=== PATIENT | male | born 1960 | race Caucasian/White ===

== ENCOUNTER 2018-12-24 10:39 | Inpatient (IN) | payer OTHER ==
[~2018-12-24] VITALS: Ht 172.7 cm; Wt 93.0 kg
--- NOTE | 2018-12-24 10:43 | NUR ---
PT AMBULATES TO BED 10 Addendum: 12/24/18 at 1102 by JEREMISA Amendment jakob in EDM - 12/24/18 at 1317 by JEREMIAS XRAY AT BEDSIDE
[2018-12-24 10:47] VITALS: BP 148/99
--- NOTE | 2018-12-24 10:49 | NUR ---
Patient being evaluated by physician at bedside.
--- NOTE | 2018-12-24 10:50 | NUR ---
58 Y M BIB SELF C/O SOB AND PALPITATIONS. PT IS DIAPHRETIC, FLUSHED, SINUS TACHY AT 189, RR 30 WITH LABORED BREATHING, SAT AT 100, BP IS 148/99, NO FEVER, PATEIENT STATES HE IS DETOXING FROM ETOH. LAST DRINK FRIDAY NIGHT. PATIENT STATES HE IS FEELING DIZZY. BED IS DOWN, LOCKED, BED RAIL X 1, ERMD NOTIFIED OF PATIENT STATUS PMH-CHF, HTN, STAGE 3 KIDNEY DISEASE
--- NOTE | 2018-12-24 11:02 | NUR ---
rad at bedside
--- NOTE | 2018-12-24 11:02 | NUR ---
lab at bedside
--- NOTE | 2018-12-24 11:02 | NUR ---
XRAY AT BEDSIDE
--- NOTE | 2018-12-24 11:07 | NUR ---
DR. MCGUIRE IS AT PT BEDSIDE AGAIN
[2018-12-24 11:09] LABS: BASOPHILS # (AUTO) 0.1 K/uL (0.00-0.22); BASOPHILS % (AUTO) 0.6 % (0.0-2.0); EOSINOPHILS # (AUTO) 0.2 K/uL (0-0.4); EOSINOPHILS % (AUTO) 2.5 % (0.0-4.0); HEMATOCRIT 41.2 % (36-52); LYMPHOCYTES # (AUTO) 1.5 K/uL (2.0-11.5); MEAN CORPUSCULAR HEMOGLOBIN 33 pg (27-31); MEAN CORPUSCULAR HGB CONC 34 g/dL (33-37); MEAN CORPUSCULAR VOLUME 97.1 fL (80-94); MONOCYTES % (AUTO) 11.3 % (1.7-9.3); NEUTROPHILS % (AUTO) 68.6 % (42.2-75.2); PLATELET COUNT (AUTO) 299 K/uL (140-450); RED BLOOD CELL COUNT(AUTO) 4.24 MIL/uL (4.20-6.10); RED CELL DISTRIBUTION WIDTH 12.6 % (11.6-13.7); WHITE BLOOD COUNT (AUTO) 8.7 K/uL (4.8-10.8)
[2018-12-24] MEDS ORDERED: ADENOSINE 6 MG/2 ML VIAL IVP ONE (11:10)
[2018-12-24 11:19] LABS: ANION GAP 14.2 (8-16); CARBON DIOXIDE 25.4 mmol/L (21-32); CREATININE 1.5 mg/dL (0.7-1.3); POTASSIUM 4.6 mmol/L (3.5-5.1)
--- NOTE | 2018-12-24 11:22 | NUR ---
PT WAS GIVEN ADENOSINE WITHOUT DR. MCGEE AT BEDSIDE
--- NOTE | 2018-12-24 11:23 | NUR ---
PT STATES HE CANNOT GIVE URINE AT THIS TIME, PT ALSO STATES HIS LAST DRINK WAS ON FRIDAY NIGHT
[2018-12-24 11:24] LABS: TOTAL BILIRUBIN 0.4 mg/dL (0.0-1.0)
--- NOTE | 2018-12-24 12:20 | NUR ---
URINE COLLECTED AT BEDSIDE
--- NOTE | 2018-12-24 12:32 | NUR ---
PT STATES DTR WILL GET PT MEDICATION LIST FOR PT
[2018-12-24] MEDS ORDERED: ONDANSETRON 4 MG/2 ML VIAL IVP PRN (12:40)
[2018-12-24] MEDS ORDERED: HYDROcodone/APAP 5/325 MG 1 TAB TAB PO PRN (12:40)
[2018-12-24] MEDS ORDERED: NITROGLYCERIN 0.4 MG TAB SL PRN (12:40)
--- NOTE | 2018-12-24 12:58 | NUR ---
PT IS EATING AT THIS TIME, WAITING FOR PT TO FINISH EATING AND WILL BRING PT TO FLOOR
[2018-12-24 13:05] LABS: BARBITURATE, URINE NEG. ng/ml (NEG <=200); BENZODIAZEPINE, URINE NEG. ng/mL (NEG <=200); CANNABINOID, URINE POS. ng/mL (NEG <=50); COCAINE, URINE NEG. ng/mL (NEG <=300); OPIATE, URINE NEG. ng/mL (NEG <=2000); PHENCYCLIDINE SCREEN,URINE NEG. ng/mL (NEG <=25)
[2018-12-24] MEDS ORDERED: ASPI-1718 PO (13:06)
[2018-12-24] MEDS ORDERED: SIMV40TA1 PO (13:06)
[2018-12-24] MEDS ORDERED: PANT40EC PO (13:06)
[2018-12-24] MEDS ORDERED: LOVA20TA8 PO (13:06)
[2018-12-24] MEDS ORDERED: ATEN50TA8 PO (13:06)
[2018-12-24] MEDS ORDERED: GEMF600T5 PO (13:06)
--- NOTE | 2018-12-24 13:15 | NUR ---
PT ARRIVED ON THE UNIT WITH 2 ER NURSES. PT IS ALERT AND ORIENTED. PT AMBULATORY. WALKED FROM [facility] TO BED. STEADY GAIT. IV ON L HAND 22G SL. NO SIGNS OF DISTRESS. NO COMPLAINTS OF PAIN AT THIS TIME. SKIN INTACT. ROOM AIR. WILL START ADMISSION PROCESS.
--- NOTE | 2018-12-24 13:15 | NUR ---
Patient will be admitted to [facility]. Admited to TELE FLOOR. Will go to room 105A. Belongings list completed. Report to DAMIR/PAUL.
--- NOTE | 2018-12-24 13:16 | NUR ---
PT TAKEN TO TELE FLOOR BY RNS JUANCHO AND JOSH
[2018-12-24 14:01] VITALS: BP 141/82
[2018-12-24 16:00] VITALS: BP 145/91
[2018-12-24] MEDS: ACETAMINOPHEN 325 MG TAB PO PRN (16:38)
--- NOTE | 2018-12-24 16:42 | NUR ---
PT C/O HEADACHE. GAVE ACETAMINOPHEN. TOLERATED WELL. WILL REASSESS PT LATER.
--- NOTE | 2018-12-24 19:19 | NUR ---
ENDORSED PT TO THE NIGHTSHIFT NURSE. PT IN STABLE CONDITION. NO MORE FERNANDEZ.
--- NOTE | 2018-12-24 19:20 | NUR ---
RECEIVED BEDSIDE REPORT FROM DAMIR MILLER. PT IS AAO X 4. ON ROOM AIR. DENIES SOB OR PAIN. HE HAS IV ON L HAND 22G SL. IV PATENT AND INTACT. SKIN IS INTACT. PLAN OF CARE WAS DISCUSSED WITH PATIENT. PT IS AMBULATORY. SAFETY MEASURES ARE IN PLACE. CALL LIGHT WITHIN REACH.
[2018-12-24 20:00] VITALS: BP 146/98
--- NOTE | 2018-12-24 20:15 | NUR ---
PAGED DR KINSEY. DR CHUNG IS STRAP MAKING MACHINE OPERATOR. PT IS HAVING HEART BURN. NEW ORDER FOR PROTONIX ONCE.
[2018-12-24] MEDS ORDERED: PANTOPRAZOLE 40 MG TABEC PO SCH (20:45)
[2018-12-24] MEDS: METOPROLOL 25 MG TAB PO SCH (21:00)
--- NOTE | 2018-12-24 21:12 | NUR ---
VS ARE WITHIN NORMAL LIMITS. LOPRESSOR WAS HELD PER DR DREW ORDERS. PT IS HAVING A STRESS TEST TOMORROW 12-25-18 AT 1200. B/P 146/98 HR 101. WILL CONTINUE TO MONITOR. CALL LIGHT WITHIN REACH.
[2018-12-24] MEDS: ZOLPIDEM 5 MG TAB PO PRN (23:34)
--- NOTE | 2018-12-24 23:34 | NUR ---
VITAL SIGNS ARE WITHIN NORMAL LIMITS. AMBIEN GIVEN. ALL NEEDS MET AT THIS TIME. CALL LIGHT WITHIN REACH
[2018-12-24 23:53] VITALS: BP 122/85
--- NOTE | 2018-12-25 02:00 | NUR ---
PT IS SLEEPING COMFORTABLY IN BED. NO S/S OF DISTRESS. CALL LIGHT WITHIN REACH.
[2018-12-25 04:00] VITALS: BP 125/86
--- NOTE | 2018-12-25 04:00 | NUR ---
VS ARE WITHIN NORMAL LIMITS. PT DENIES ANY SOB OR PAIN. ALL NEEDS MET AT THIS TIME. CALL LIGHT WITHIN REACH.
[2018-12-25] MEDS: PANTOPRAZOLE 40 MG TABEC PO SCH (05:36)
--- NOTE | 2018-12-25 05:39 | NUR ---
DUE MEDICATION GIVEN. ALL NEEDS MET AT THIS TIME. CALL LIGHT WITHIN REACH.
[2018-12-25 06:42] LABS: BASOPHILS # (AUTO) 0.1 K/uL (0.00-0.22); BASOPHILS % (AUTO) 1.4 % (0.0-2.0); EOSINOPHILS # (AUTO) 0.3 K/uL (0-0.4); EOSINOPHILS % (AUTO) 4.2 % (0.0-4.0); HEMATOCRIT 38.3 % (36-52); HEMOGLOBIN 13.1 g/dL (12.0-18.0); LYMPHOCYTES # (AUTO) 1.5 K/uL (2.0-11.5); LYMPHOCYTES % (AUTO) 23.4 % (20.5-51.1); MEAN CORPUSCULAR HEMOGLOBIN 33 pg (27-31); MEAN CORPUSCULAR HGB CONC 34 g/dL (33-37); MONOCYTES # (AUTO) 0.8 K/uL (0.8-1.0); MONOCYTES % (AUTO) 12.1 % (1.7-9.3); NEUTROPHILS # (AUTO) 3.8 K/uL (1.8-7.7); NEUTROPHILS % (AUTO) 58.9 % (42.2-75.2); PLATELET COUNT (AUTO) 304 K/uL (140-450); RED BLOOD CELL COUNT(AUTO) 3.95 MIL/uL (4.20-6.10); RED CELL DISTRIBUTION WIDTH 12.4 % (11.6-13.7); WHITE BLOOD COUNT (AUTO) 6.5 K/uL (4.8-10.8)
[2018-12-25 07:11] LABS: ANION GAP 11.2 (8-16); CARBON DIOXIDE 26.7 mmol/L (21-32); CREATININE 1.4 mg/dL (0.7-1.3); POTASSIUM 3.9 mmol/L (3.5-5.1)
--- NOTE | 2018-12-25 07:20 | NUR ---
GAVE BEDSIDE REPORT TO JUSTICE RN. PT ENDORSED IN STABLE CONDITION.
--- NOTE | 2018-12-25 07:21 | NUR ---
RECEIVED BEDSIDE REPORT FROM STATION ATTENDANT NURSE. PATIENT IS AWAKE, ALERT AND ORIENTEDX4. NO SIGNS OF DISTRESS ON RA. GAIT IS STEADY, SKIN IS INTACT. L HAND 22G SL. CLEAN, DRY AND INTACT. NO COMPLAINTS AT THIS TIME. CONTINENT. HOLDING FOOD AND PO MEDS UNTIL STRESS TEST IS DONE. WILL CONTINUE TO MONITOR THE PATIENT. BED IN LOW POSITION
[2018-12-25 08:00] VITALS: BP 141/96
--- NOTE | 2018-12-25 08:05 | NUR ---
PATIENT HAS BEEN SCREENED AND CATEGORIZED MODERATE NUTRITION RISK. PATIENT WILL BE SEEN WITHIN 3-5 DAYS OF ADMISSION. 12/27/18[address]
[2018-12-25] MEDS: ASPIRIN 81 MG TAB.CHEW PO SCH (08:41)
[2018-12-25] MEDS: METOPROLOL 25 MG TAB PO SCH ×3 (08:41→21:21)
--- NOTE | 2018-12-25 08:45 | NUR ---
HELD PO MEDS. PATIENT WILL HAVE STRESS TEST DONE AT 12. ADMINISTERED KAZ HEPARIN. PATIENT TOLERATED WELL. WILL CONTINUE TO MONITOR THE PATIENT
[2018-12-25] MEDS ORDERED: ASPIRIN 81 MG TAB.CHEW PO SCH (09:00)
[2018-12-25] MEDS ORDERED: ATENOLOL 50 MG TAB PO SCH (09:00)
[2018-12-25] MEDS ORDERED: LOVASTATIN PO SCH (09:00)
--- NOTE | 2018-12-25 09:57 | NUR ---
CALLED TO MAKE FOLLOW UP APPOINTMENT WITH PCP DR. DAWSON ALDANA. THE FOLLOW UP APPOINTMENT WITH BE ON MONDAY, JANUARY 01 AT 11A.M. ADDRESS, [address] [place] [address] PHONE [phone]. I GAVE THE INFORMATION TO THE PATIENT.
--- NOTE | 2018-12-25 10:40 | NUR ---
PATIENT SITTING IN BED. NO SIGNS OF DISTRESS. WILL CONTINUE TO MONITOR THE PATIENT
--- NOTE | 2018-12-25 11:46 | NUR ---
DR DREW AWARE THE PATIENT B/P GOING UP. HE SAID TO GIVE THE MORNING LOPRESSOR AND WE WILL HOLD THE STRESS TEST TILL TOMORROW. PATIENT AGREED AND WILL GET LUNCH TRAY SOON.
[2018-12-25 12:00] VITALS: BP 161/105
--- NOTE | 2018-12-25 13:44 | NUR ---
PATIENT OF TELE TO TAKE A SHOWER. PATIENT IN SHOWER AT THIS TIME
--- NOTE | 2018-12-25 14:00 | NUR ---
PATIENT BACK IN BED FROM SHOWER. NO SIGNS OF DISTRESS
[2018-12-25 14:30] VITALS: BP 130/92
[2018-12-25] MEDS: ACETAMINOPHEN 325 MG TAB PO PRN (14:36)
[2018-12-25 16:00] VITALS: BP 148/96
--- NOTE | 2018-12-25 16:24 | NUR ---
PATIENT LAYING IN BED. PATIENT IS AWARE STRESS TEST WILL BE DONE TOMORROW AT 1100. NO COMPLAINTS AT THIS TIME. WILL CONTINUE TO MONITOR THE PATIENT
--- NOTE | 2018-12-25 17:40 | NUR ---
PATIENT SITTING IN BED. NO SIGNS OF DISTRESS. WILL CONTINUE TO MONITOR
--- NOTE | 2018-12-25 19:00 | NUR ---
GAVE BEDSIDE REPORT TO WHOLESALE REPRESENTATIVE NURSE. PATIENT ENDORSED IN STABLE CONDITION
--- NOTE | 2018-12-25 19:05 | NUR ---
RECEIVED BEDSIDE REPORT FROM JUSTICE MILLER. PT IS AAO X 4. ON ROOM AIR. DENIES SOB OR PAIN. HE HAS IV ON L HAND 22G SL. IV PATENT AND INTACT. SKIN IS INTACT. PLAN OF CARE WAS DISCUSSED WITH PATIENT. PT AWARE OF HAVING STRESS TEST TOMORROW AT 1100 AND WILL NOT BE ABLE TO EAT 4 HOURS PRIOR. PT IS AMBULATORY. SAFETY MEASURES ARE IN PLACE. CALL LIGHT WITHIN REACH.
--- NOTE | 2018-12-25 19:30 | NUR ---
PER DR DREW CAN ADMINISTER 2100 LOPRESSOR AND HOLD 0900 UNTIL AFTER STRESS TEST.
[2018-12-25 20:00] VITALS: BP 150/95
[2018-12-25] MEDS ORDERED: SIMVASTATIN 40 MG TAB PO SCH (21:00)
[2018-12-25] MEDS: ZOLPIDEM 5 MG TAB PO PRN (21:21)
--- NOTE | 2018-12-25 21:21 | NUR ---
VITAL SIGNS ARE STABLE. DUE MEDICATIONS ADMINISTERED. ALL NEEDS MET AT THIS TIME. CALL LIGHT WITHIN REACH.
--- NOTE | 2018-12-25 22:41 | NUR ---
PT RESTING COMFORTABLY IN BED. NO S/S OF DISTRESS. CALL LIGHT WITHIN REACH.
[2018-12-26] VITALS: BP 128/80
--- NOTE | 2018-12-26 00:25 | NUR ---
VITAL SIGNS ARE STABLE. ALL NEEDS MET AT THIS TIME. CALL LIGHT WITHIN REACH.
[2018-12-26 04:00] VITALS: BP 140/94
--- NOTE | 2018-12-26 04:00 | NUR ---
VITAL SIGNS ARE WITHIN NORMAL LIMITS. DENIES ANY PAIN OR SOB. REMINDED PT HE IS NPO UNTIL AFTER THE STRESS TEST. CALL LIGHT WITHIN REACH.
[2018-12-26] MEDS: PANTOPRAZOLE 40 MG TABEC PO SCH (05:50)
--- NOTE | 2018-12-26 05:50 | NUR ---
DUE MEDICATION GIVEN. NO S/S OF DISTRESS. ALL NEEDS MET AT THIS TIME. WILL CONTINUE TO MONITOR.
--- NOTE | 2018-12-26 07:28 | NUR ---
GAVE BEDSIDE REPORT TO JUSTICE RN. PT IS IN STABLE CONDITION.
--- NOTE | 2018-12-26 07:29 | NUR ---
RECEIVED BEDSIDE REPORT FROM JUNIOR ACCOUNT MANAGER NURSE. PATIENT IS AWAKE, ALERT AND ORIENTEDX4. NO SIGNS OF DISTRESS ON RA. SKIN IS INTACT. GAIT IS STEADY. CONTINENT. IV ON L HAND 22G SL. CLEAN, DRY AND INTACT. BED IN LOW POSITION. CALL LIGHT WITHIN REACH. WILL CONTINUE TO MONITOR
[2018-12-26 08:00] VITALS: BP 143/91
[2018-12-26] MEDS: ASPIRIN 81 MG TAB.CHEW PO SCH (08:54)
[2018-12-26] MEDS: METOPROLOL 25 MG TAB PO SCH (08:55)
--- NOTE | 2018-12-26 09:04 | NUR ---
ADMINISTERED MEDS. PATIENT TOLERATED WELL. WILL CONTINUE TO MONITOR THE PATIENT. HELD ASPIRIN AND LOPRESSOR FOR STRESS TEST. DR KINSEY SAID PATIENT MAY LEAVE IF STRESS TEST IS FINE
--- NOTE | 2018-12-26 10:47 | NUR ---
PATIENT GETTING PICKED UP TO DO STRESS TEST. PATIENT LEFT IN STABLE CONDITION
[2018-12-26 12:00] VITALS: BP 142/101
[2018-12-26] MEDS ORDERED: METO25TA PO (12:43)
--- NOTE | 2018-12-26 12:55 | NUR ---
EDUCATED PATIENT ON DISEASE PROCESS, ABN S/SX, WHEN TO GO TO THE ER, MEDS, GAVE PRESCRIPTION, EDUCATED ON FOLLOW UP W PCP, EDUCATED ON REFUSAL OF PNA AND FLU VACCINE. PATIENT VERBALIZED UNDERSTANDING. ID BANDS AND TELE REMOVED. TIP REMOVED TIP INTACT. PATIENT LEFT WALKING IN STABLE CONDITION
== END 2018-12-26 12:55 | disposition home or self-care (01) | DRG 201 ==
LOC: MED 10:39 → MTU 12:41
PROVIDERS: ADMIT Hospitalist; ATTEND Hospitalist
DX: I47.1 Supraventricular tachycardia (principal); I50.9 Heart failure, unspecified; N18.3 Chronic kidney disease, stage 3 (moderate); I13.0 Hypertensive heart and chronic kidney disease with heart failure and stage 1 through stage 4 chronic kidney disease, or unspecified chronic kidney disease; R07.89 Other chest pain; K21.9 Gastro-esophageal reflux disease without esophagitis; F12.10 Cannabis abuse, uncomplicated; Z98.42 Cataract extraction status, left eye; Z98.41 Cataract extraction status, right eye; F10.20 Alcohol dependence, uncomplicated; Y90.9 Presence of alcohol in blood, level not specified
CPT/HCPCS: 36415; 71045; 80048; 80053; 80305; 83880; 84443; 84484; 85025; 87081; 93005; 93017; 96374; 99285; J0153; J1644; Q0092

== ENCOUNTER 2019-04-05 09:54 | Emergency (ER) | payer OTHER ==
[~2019-04-05] VITALS: Ht 172.7 cm; Wt 90.7 kg
[~2019-04-05 09:54] MED LIST: ASPI-1718 PO; ATEN50TA8 PO; GEMF600T5 PO; LOVA20TA8 PO; METO25TA PO; PANT40EC PO; SIMV40TA1 PO
[2019-04-05 10:05] VITALS: BP 166/118
--- NOTE | 2019-04-05 10:06 | NUR ---
VITALS TAKEN AND GIVEN TO NURSE
--- NOTE | 2019-04-05 10:07 | NUR ---
PATIENT AMBULATED TO BED 08
--- NOTE | 2019-04-05 10:07 | NUR ---
Dr. Ferguson evaluating patient at bedside.
--- NOTE | 2019-04-05 10:15 | NUR ---
PT C/O SOB, UNCONTROLLED HIGH BLOOD PRESSURE, LIGHTHEADACHE SINCE LAST NIGHT. PT REPORTS NAUSEA LAST NIGHT BUT NOT AT THIS TIME. DENIES VOMITING AND DIARRHEA; SKIN IS PINK/WARM/DRY; AAOX4 WITH EVEN AND STEADY GAIT; PT DENIES ANY FEVER, CP, OR COUGH AT THIS TIME; PATIENT STATES HEADACHE OF 2/10 AT THIS TIME; VSS; PATIENT POSITIONED FOR COMFORT; HOB ELEVATED; BEDRAILS UP X2; BED DOWN. ER MD MADE AWARE OF PT STATUS.
--- NOTE | 2019-04-05 10:19 | NUR ---
ekg at bedside by emt
--- NOTE | 2019-04-05 10:37 | NUR ---
PHLEB at bedside for blood draw.
--- NOTE | 2019-04-05 10:42 | NUR ---
regulatory and compliance technician at bedside.
[2019-04-05] MEDS ORDERED: [UNRECOGNIZED DRUG - CODE] PO (10:46)
[2019-04-05] MEDS ORDERED: ROSU20TA1 PO (10:49)
[2019-04-05] MEDS ORDERED: FURO-570 PO (10:49)
[2019-04-05] MEDS ORDERED: CARV25TA PO (10:50)
[2019-04-05 10:55] LABS: BASOPHILS % (AUTO) 0.3 % (0.0-2.0); EOSINOPHILS # (AUTO) 0.1 K/uL (0-0.4); HEMATOCRIT 43.3 % (36-52); HEMOGLOBIN 15.2 g/dL (12.0-18.0); LYMPHOCYTES % (AUTO) 14.9 % (20.5-51.1); MEAN CORPUSCULAR HEMOGLOBIN 34 pg (27-31); MEAN CORPUSCULAR HGB CONC 35 g/dL (33-37); MEAN CORPUSCULAR VOLUME 96.1 fL (80-94); MONOCYTES # (AUTO) 0.5 K/uL (0.8-1.0); NEUTROPHILS % (AUTO) 76.8 % (42.2-75.2); PLATELET COUNT (AUTO) 223 K/uL (140-450); RED BLOOD CELL COUNT(AUTO) 4.51 MIL/uL (4.20-6.10); RED CELL DISTRIBUTION WIDTH 12.7 % (11.6-13.7); WHITE BLOOD COUNT (AUTO) 6.6 K/uL (4.8-10.8)
[2019-04-05 11:01] LABS: ANION GAP 16.9 (8-16); CARBON DIOXIDE 24.5 mmol/L (21-32); CREATININE 1.2 mg/dL (0.7-1.3); POTASSIUM 3.4 mmol/L (3.5-5.1)
[2019-04-05 11:07] LABS: ALBUMIN 3.9 g/dL (3.4-5.0); TOTAL BILIRUBIN 0.5 mg/dL (0.0-1.0)
[2019-04-05 11:29] LABS: APPEARANCE,URINE CLEAR (CLEAR); BILIRUBIN,URINE NEGATIVE (NEGATIVE); BLOOD, URINE TRACE-I (NEGATIVE); COLOR,URINE YELLOW (YELLOW); LEUKOCYTE ESTERASE ,URINE NEGATIVE (NEGATIVE); NITRITE, URINE NEGATIVE (NEGATIVE); UGLUCOSE NEGATIVE (NEGATIVE)
[2019-04-05 11:35] LABS: RBC,URINE 0-5 /HPF (0-5); WBC,URINE 0-5 /HPF (0-5)
[2019-04-05] MEDS ORDERED: METOPROLOL 5 MG/5 ML VIAL IVP ONE (11:40)
--- NOTE | 2019-04-05 11:55 | NUR ---
Dr. Ferguson re-evaluating patient at bedside.
--- NOTE | 2019-04-05 12:28 | NUR ---
Dr. Ferguson evaluating patient at bedside.
[2019-04-05 12:42] VITALS: BP 169/107
--- NOTE | 2019-04-05 12:42 | NUR ---
Patient discharged with v/s stable. Written and verbal after care instructions given and explained. Patient verbalized understanding. Ambulatory with steady gait. All questions addressed prior to discharge. Advised to follow up with PMD REGARDING HYPERTENSION.
== END 2019-04-05 12:42 | disposition home or self-care (01) ==
LOC: MED 09:54
DX: I13.0 Hypertensive heart and chronic kidney disease with heart failure and stage 1 through stage 4 chronic kidney disease, or unspecified chronic kidney disease (principal); N18.3 Chronic kidney disease, stage 3 (moderate); I50.9 Heart failure, unspecified; Z79.82 Long term (current) use of aspirin; Z79.899 Other long term (current) drug therapy; Z98.890 Other specified postprocedural states
CPT/HCPCS: 36415; 71045; 80053; 81001; 83880; 84484; 85025; 93005; 96374; 99284; J3490; Q0092

== ENCOUNTER 2019-05-17 13:24 | Emergency (ER) | payer OTHER ==
[~2019-05-17] VITALS: Ht 172.7 cm; Wt 90.7 kg
[~2019-05-17 13:24] MED LIST changes: -ATEN50TA8 PO; +CARV25TA PO; +FURO-570 PO; -LOVA20TA8 PO; -METO25TA PO; -PANT40EC PO; +ROSU20TA1 PO; -SIMV40TA1 PO; +[UNRECOGNIZED DRUG - CODE] PO
[2019-05-17 13:46] VITALS: BP 130/81
[2019-05-17] MEDS ORDERED: AMLO5TAB PO (13:51)
[2019-05-17] MEDS ORDERED: GABA300C PO (13:52)
[2019-05-17] MEDS ORDERED: ERGO2000 PO (13:53)
[2019-05-17] MEDS ORDERED: LOSA50TA66 PO (13:54)
--- NOTE | 2019-05-17 13:55 | NUR ---
PT TO [facility], VSS, HOME MEDS REVIEWED.
--- NOTE | 2019-05-17 14:15 | NUR ---
PT TO ER BED 6
--- NOTE | 2019-05-17 14:30 | NUR ---
PT C/O SOB, SORETHROAT, SWELLING TO BL SHOULDER AREA, PT STATES HE FELL RECENTLY FROM BEING DIZZY AND HAS HAD SOB, PT CONCERNED MEDS ARE MAKING HIM DIZZY AND GLANDS ARE SWOLLEN. DENIES N/V/D; SKIN IS PINK/WARM/DRY; AAOX4 WITH EVEN AND STEADY GAIT; PATIENT STATES PAIN OF 4/10 AT THIS TIME; VSS; PATIENT POSITIONED FOR COMFORT; HOB ELEVATED; BEDRAILS UP X1; BED DOWN. ER MD MADE AWARE OF PT STATUS.
--- NOTE | 2019-05-17 14:52 | NUR ---
Dr. Matamoros evaluating patient at bedside.
[2019-05-17] MEDS ORDERED: KETOROLAC 60 MG/2 ML VIAL IM ONE (16:20)
--- NOTE | 2019-05-17 16:31 | NUR ---
Patient returned from CT scan. RN re-evaluating patient at bedside.
--- NOTE | 2019-05-17 17:35 | NUR ---
Dr. Matamoros re-evaluating patient at bedside.
--- NOTE | 2019-05-17 17:45 | NUR ---
Patient discharged with v/s stable. Written and verbal after care instructions given and explained. Patient alert, oriented and verbalized understanding of instructions. Ambulatory with steady gait. All questions addressed prior to discharge. ID band removed. Patient advised to follow up with PMD. Rx of HYDROCORTISONE, IBU given. Patient educated on indication of medication including possible reaction and side effects. Opportunity to ask questions provided and answered.
[2019-05-17 18:12] VITALS: BP 133/81
== END 2019-05-17 17:45 | disposition home or self-care (01) ==
LOC: MED 13:24
DX: R59.1 Generalized enlarged lymph nodes (principal); M54.2 Cervicalgia; I12.9 Hypertensive chronic kidney disease with stage 1 through stage 4 chronic kidney disease, or unspecified chronic kidney disease; N18.3 Chronic kidney disease, stage 3 (moderate); Z79.82 Long term (current) use of aspirin; Z79.899 Other long term (current) drug therapy
CPT/HCPCS: 70490; 96372; 99284; J1885

== ENCOUNTER 2019-08-06 17:42 | Emergency (ER) | payer OTHER ==
[~2019-08-06] VITALS: Ht 172.7 cm; Wt 90.7 kg
[~2019-08-06 17:42] MED LIST changes: +AMLO5TAB PO; +ERGO2000 PO; +GABA300C PO; +LOSA50TA66 PO; +OMEP-100 PO; -ROSU20TA1 PO; -[UNRECOGNIZED DRUG - CODE] PO
[2019-08-06 17:47] VITALS: BP 107/65
--- NOTE | 2019-08-06 17:49 | NUR ---
TO LOBBY AWAITNG BED IN ED. SQUEAK RATTLE AND LEAK REPAIRER AWARE OF PT STATUS.
--- NOTE | 2019-08-06 18:09 | NUR ---
PT AMBULATED TO BED 5.
--- NOTE | 2019-08-06 18:11 | NUR ---
SOB/PALPITATION X 2 WEEKS. MILD DISTRESS NOTED. ADMITS TO ETOH USE TODAY.PT STATED HE FEELS SOB, O2 SATS SHOW 97% ON RA.BEDSIDE MONITOR SHOWS SR-ST(97S-102S). PT STATED HIS SOB MAYBE DUE TO HIS STAGE III RENAL DISEASE. DENIES N/V/D; SKIN IS PINK/WARM/DRY; AAOX4 WITH EVEN AND STEADY GAIT; LUNGS CLEAR BL; HR EVEN AND REGULAR; PT DENIES ANY FEVER, CP,OR COUGH AT THIS TIME; PATIENT POSITIONED FOR COMFORT; HOB ELEVATED; BEDRAILS UP X2; BED DOWN. ER MD MADE AWARE OF PT STATUS.
--- NOTE | 2019-08-06 19:13 | NUR ---
ENDORSED TO PM SHIFT RN.
--- NOTE | 2019-08-06 20:42 | NUR ---
PT AMBULATED TO RESTROOM. NO SIGNS OF DISTRESS NOTED. NO SOB. VSS.
[2019-08-06 20:53] VITALS: BP 122/80
--- NOTE | 2019-08-06 20:53 | NUR ---
Patient discharged with v/s stable. Written and verbal after care instructions given and explained. Patient verbalized understanding. Ambulatory with steady gait. All questions addressed prior to discharge. Advised to follow up with PMD.
== END 2019-08-06 20:53 | disposition home or self-care (01) ==
LOC: MED 17:42
DX: R06.02 Shortness of breath (principal); R00.2 Palpitations; F10.10 Alcohol abuse, uncomplicated; I12.9 Hypertensive chronic kidney disease with stage 1 through stage 4 chronic kidney disease, or unspecified chronic kidney disease; N18.3 Chronic kidney disease, stage 3 (moderate); Z79.82 Long term (current) use of aspirin; Z79.899 Other long term (current) drug therapy
CPT/HCPCS: 36600; 71045; 82803; 99283; Q0092; 99284

== ENCOUNTER 2020-07-22 09:14 | Emergency (ER) | payer OTHER ==
[~2020-07-22] VITALS: Ht 172.7 cm; Wt 88.5 kg
[~2020-07-22 09:14] MED LIST changes: -ASPI-1718 PO; +ASPI-1822 PO
[2020-07-22 09:20] VITALS: BP 127/77
[2020-07-22] MEDS ORDERED: ALBUTEROL HFA MDI 90 MCG/ACTUATION 8 GM INH ONE (10:30)
[2020-07-22] MEDS ORDERED: ONDANSETRON 4 MG ODT PO ONE ×2 (10:30→10:55)
[2020-07-22] MEDS ORDERED: guaiFENesin DM 200/20 MG-10 ML 10 ML UDC PO ONE (10:30)
[2020-07-22 10:49] LABS: BASOPHILS # (AUTO) 0.1 K/uL (0.00-0.22); BASOPHILS % (AUTO) 0.5 % (0.0-2.0); EOSINOPHILS % (AUTO) 0.3 % (0.0-4.0); HEMATOCRIT 42.5 % (36-52); HEMOGLOBIN 14.8 g/dL (12.0-18.0); LYMPHOCYTES # (AUTO) 1.1 K/uL (2.0-11.5); LYMPHOCYTES % (AUTO) 9.8 % (20.5-51.1); MEAN CORPUSCULAR HEMOGLOBIN 31 pg (27-31); MEAN CORPUSCULAR HGB CONC 35 g/dL (33-37); MEAN CORPUSCULAR VOLUME 89.1 fL (80-94); MONOCYTES # (AUTO) 0.7 K/uL (0.8-1.0); NEUTROPHILS # (AUTO) 9.1 K/uL (1.8-7.7); NEUTROPHILS % (AUTO) 83.4 % (42.2-75.2); PLATELET COUNT (AUTO) 348 K/uL (140-450); RED BLOOD CELL COUNT(AUTO) 4.77 MIL/uL (4.20-6.10); RED CELL DISTRIBUTION WIDTH 13.3 % (11.6-13.7); WHITE BLOOD COUNT (AUTO) 10.9 K/uL (4.8-10.8)
[2020-07-22] MEDS ORDERED: ONDANSETRON 4 MG ODT ONE (10:52)
[2020-07-22] MEDS ORDERED: guaiFENesin DM 200/20 MG-10 ML 10 ML UDC ONE (10:52)
[2020-07-22] MEDS ORDERED: guaiFENesin/CODEINE 100/10MG 5 ML UDC PO ONE (10:55)
[2020-07-22 11:07] LABS: ALBUMIN 4.1 g/dL (3.4-5.0); ANION GAP 18.6 (8-16); CARBON DIOXIDE 19.7 mmol/L (21-32); CREATININE 1.2 mg/dL (0.6-1.3); POTASSIUM 3.3 mmol/L (3.5-5.1); TOTAL BILIRUBIN 0.7 mg/dL (0.0-1.0)
[2020-07-22] MEDS ORDERED: POTASSIUM CHLORIDE 10 MEQ TABER PO ONE (11:40)
[2020-07-22 12:15] VITALS: BP 150/98
== END 2020-07-22 12:11 | disposition home or self-care (01) ==
LOC: MED 09:14
DX: J20.9 Acute bronchitis, unspecified (principal); E87.6 Hypokalemia; I11.0 Hypertensive heart disease with heart failure; Z79.899 Other long term (current) drug therapy; Z20.828 Contact with and (suspected) exposure to other viral communicable diseases
CPT/HCPCS: 36415; 71045; 80053; 83880; 84484; 85025; 93005; 99285; Q0092; Q0162; U0003

== ENCOUNTER 2021-03-05 22:30 | Emergency (ER) | payer OTHER ==
[~2021-03-05] VITALS: Ht 172.7 cm; Wt 79.4 kg
[2021-03-05 22:43] VITALS: BP 116/83
[2021-03-06 00:28] VITALS: BP 128/79
== END 2021-03-06 00:28 | disposition home or self-care (01) ==
LOC: MED 22:30
DX: F10.10 Alcohol abuse, uncomplicated (principal); I10 Essential (primary) hypertension; Z79.899 Other long term (current) drug therapy; Z79.82 Long term (current) use of aspirin
CPT/HCPCS: 99283

== ENCOUNTER 2021-08-03 23:39 | Emergency (ER) | payer OTHER ==
[~2021-08-03] VITALS: Ht 160 cm; Wt 65.8 kg
[2021-08-04 00:07] VITALS: BP 120/75
--- NOTE | 2021-08-04 00:08 | NUR ---
BIBA S/P FALL AT RESIDENCE. PATIENT GCS 14 SLIGHTY CONFUSED SECONDARY TO ETOH. PATIENT STATES HE HAS BEEN DRINKING AND DOES NOT REMEMBER FALLING. HE HAS INJURY TO BACK OF HEAD HEMATOMA APPROX GOLFBALL SIZE PER EMS. APPROX 20 ML BLOOD LOSS ON SCENE AND PATIENT ARRIVED WITH HEAD WRAPPED. NO FURTHER COMPLAINTS, PMHX DM CHF HTN POS BLOOD THINNER POS LOC
--- NOTE | 2021-08-04 00:10 | NUR ---
TAKEN TO CT
[2021-08-04 00:44] LABS: BASOPHILS % (AUTO) 0.4 % (0.0-2.0); EOSINOPHILS # (AUTO) 0.1 K/uL (0-0.4); EOSINOPHILS % (AUTO) 0.8 % (0.0-4.0); HEMATOCRIT 40.8 % (36-52); HEMOGLOBIN 13.9 g/dL (12.0-18.0); LYMPHOCYTES # (AUTO) 1.5 K/uL (2.0-11.5); LYMPHOCYTES % (AUTO) 14.2 % (20.5-51.1); MEAN CORPUSCULAR HEMOGLOBIN 32 pg (27-31); MEAN CORPUSCULAR HGB CONC 34 g/dL (33-37); MEAN CORPUSCULAR VOLUME 94.5 fL (80-94); MONOCYTES # (AUTO) 0.4 K/uL (0.8-1.0); MONOCYTES % (AUTO) 4.1 % (1.7-9.3); NEUTROPHILS # (AUTO) 8.7 K/uL (1.8-7.7); NEUTROPHILS % (AUTO) 80.5 % (42.2-75.2); PLATELET COUNT (AUTO) 323 K/uL (140-450); RED BLOOD CELL COUNT(AUTO) 4.31 MIL/uL (4.20-6.10); WHITE BLOOD COUNT (AUTO) 10.9 K/uL (4.8-10.8)
--- NOTE | 2021-08-04 00:55 | NUR ---
ISABELLA BELLA AT BEDSIDE FOR LAC REPAIR
[2021-08-04 01:13] LABS: ANION GAP 14.5 (8-16); CARBON DIOXIDE 25.8 mmol/L (21-32); CREATININE 1.2 mg/dL (0.6-1.3); POTASSIUM 3.3 mmol/L (3.5-5.1); TOTAL BILIRUBIN 0.2 mg/dL (0.0-1.0)
[2021-08-04] MEDS ORDERED: POTASSIUM CHLORIDE 10 MEQ TABER PO ONE ×2 (01:40→02:05)
--- NOTE | 2021-08-04 02:18 | NUR ---
JANES CLEARED FOR DISCHARGE AT THIS TIME. PATIENT COAX4 AMBULATORY AND HAS NO FURTHER QUETIONS FOLLOWING DISCHARGE TEACHING.
[2021-08-04 02:19] VITALS: BP 146/84
== END 2021-08-04 02:18 | disposition home or self-care (01) ==
LOC: MED 23:39
DX: S01.01XA Laceration without foreign body of scalp, initial encounter (principal); F10.129 Alcohol abuse with intoxication, unspecified; E11.9 Type 2 diabetes mellitus without complications; I11.0 Hypertensive heart disease with heart failure; I50.9 Heart failure, unspecified; Z79.899 Other long term (current) drug therapy; Z79.82 Long term (current) use of aspirin; W01.198A Fall on same level from slipping, tripping and stumbling with subsequent striking against other object, initial encounter; Y93.89 Activity, other specified; Y92.89 Other specified places as the place of occurrence of the external cause; Y99.8 Other external cause status
CPT/HCPCS: 36415; 70450; 80053; 85025; 90471; 90715; 99284

== ENCOUNTER 2021-11-16 07:54 | Day surgery (SDC) | payer OTHER, SELFPAY ==
[~2021-11-16] VITALS: Ht 172.7 cm; Wt 81.6 kg
[2021-11-16] MEDS ORDERED: fentaNYL citrate 0.05 MG/ML VIAL ONE (08:56)
[2021-11-16] MEDS ORDERED: MIDAZOLAM 5 MG/5 ML VIAL ONE (08:57)
[2021-11-16] MEDS ORDERED: MIDAZOLAM 2 MG/2 ML VIAL IVP ONE (09:30)
== END 2021-11-16 10:28 | disposition home or self-care (01) ==
LOC: MDS 07:54 → MMU 07:55 → MDS 10:28
PROVIDERS: ATTEND Internal Medicine Gastroenterology
DX: K22.70 Barrett's esophagus without dysplasia (principal); K44.9 Diaphragmatic hernia without obstruction or gangrene; K21.9 Gastro-esophageal reflux disease without esophagitis; I13.0 Hypertensive heart and chronic kidney disease with heart failure and stage 1 through stage 4 chronic kidney disease, or unspecified chronic kidney disease; N18.30 Chronic kidney disease, stage 3 unspecified; I50.9 Heart failure, unspecified; J44.9 Chronic obstructive pulmonary disease, unspecified; Z79.899 Other long term (current) drug therapy; Z20.822 Contact with and (suspected) exposure to COVID-19
CPT/HCPCS: 43235; 87426; J2250; J3010

== ENCOUNTER 2022-05-30 18:32 | Inpatient (IN) | payer OTHER ==
[~2022-05-30] VITALS: Ht 172.7 cm; Wt 80.3 kg
[2022-05-30 18:41] VITALS: BP 141/109
[2022-05-30] MEDS ORDERED: METOPROLOL 5 MG/5 ML VIAL IVP ONE (19:50)
[2022-05-30 20:09] LABS: BASOPHILS # (AUTO) 0.1 K/uL (0.00-0.22); BASOPHILS % (AUTO) 0.9 % (0.0-2.0); EOSINOPHILS # (AUTO) 0.1 K/uL (0-0.4); EOSINOPHILS % (AUTO) 0.7 % (0.0-4.0); HEMATOCRIT 46.9 % (36-52); HEMOGLOBIN 15.7 g/dL (12.0-18.0); LYMPHOCYTES # (AUTO) 2.5 K/uL (2.0-11.5); LYMPHOCYTES % (AUTO) 19.9 % (20.5-51.1); MEAN CORPUSCULAR HEMOGLOBIN 31 pg (27-31); MEAN CORPUSCULAR HGB CONC 34 g/dL (33-37); MEAN CORPUSCULAR VOLUME 92.5 fL (80-94); MONOCYTES % (AUTO) 8.4 % (1.7-9.3); NEUTROPHILS # (AUTO) 8.8 K/uL (1.8-7.7); NEUTROPHILS % (AUTO) 70.1 % (42.2-75.2); PLATELET COUNT (AUTO) 387 K/uL (140-450); RED BLOOD CELL COUNT(AUTO) 5.07 MIL/uL (4.20-6.10); RED CELL DISTRIBUTION WIDTH 14.3 % (11.6-13.7); WHITE BLOOD COUNT (AUTO) 12.5 K/uL (4.8-10.8)
[2022-05-30 20:20] LABS: PROTHROMBIN TIME 10.1 secs (10.8-13.4)
[2022-05-30 20:27] LABS: ANION GAP 14.9 (8-16); CARBON DIOXIDE 26.1 mmol/L (21-32); CREATININE 1.3 mg/dL (0.6-1.3); TOTAL BILIRUBIN 0.3 mg/dL (0.0-1.0)
[2022-05-30] MEDS ORDERED: NACL 0.9% 500 ML IV ONE (21:50)
[2022-05-30] MEDS ORDERED: POTASSIUM CHLORIDE 10 MEQ TABER PO PRN (22:05)
[2022-05-30] MEDS ORDERED: MAG SULF 2000 MG/WATER PREMIX 50 ML IV PRN (22:05)
[2022-05-30] MEDS ORDERED: KCL 20 MEQ/WATER INJ PREMIX 200 ML IV PRN (22:05)
[2022-05-30] MEDS ORDERED: ONDANSETRON 4 MG/2 ML VIAL IVP PRN (22:05)
[2022-05-30] MEDS ORDERED: MAGNESIUM OXIDE 400 MG TAB PO PRN (22:05)
[2022-05-30] MEDS ORDERED: ACETAMINOPHEN 325 MG TAB PO PRN (22:05)
[2022-05-31] MEDS ORDERED: GABAPENTIN 300 MG CAP ONE (00:32)
[2022-05-31] MEDS: MORPHINE SULFATE 2 MG/ML SYR IVP PRN (00:40)
[2022-05-31 03:01] VITALS: BP 120/75
[2022-05-31 07:27] LABS: BASOPHILS # (AUTO) 0.1 K/uL (0.00-0.22); BASOPHILS % (AUTO) 0.9 % (0.0-2.0); EOSINOPHILS # (AUTO) 0.1 K/uL (0-0.4); EOSINOPHILS % (AUTO) 1.2 % (0.0-4.0); HEMATOCRIT 41.5 % (36-52); HEMOGLOBIN 14.3 g/dL (12.0-18.0); LYMPHOCYTES % (AUTO) 21.6 % (20.5-51.1); MEAN CORPUSCULAR HEMOGLOBIN 32 pg (27-31); MEAN CORPUSCULAR HGB CONC 34 g/dL (33-37); MEAN CORPUSCULAR VOLUME 92.2 fL (80-94); MONOCYTES # (AUTO) 0.7 K/uL (0.8-1.0); MONOCYTES % (AUTO) 7.6 % (1.7-9.3); NEUTROPHILS # (AUTO) 6.5 K/uL (1.8-7.7); NEUTROPHILS % (AUTO) 68.7 % (42.2-75.2); PLATELET COUNT (AUTO) 292 K/uL (140-450); RED BLOOD CELL COUNT(AUTO) 4.51 MIL/uL (4.20-6.10); WHITE BLOOD COUNT (AUTO) 9.5 K/uL (4.8-10.8)
[2022-05-31 07:51] LABS: ANION GAP 12.1 (8-16); CARBON DIOXIDE 25.5 mmol/L (21-32); POTASSIUM 3.6 mmol/L (3.5-5.1)
[2022-05-31 08:00] VITALS: BP 138/91
[2022-05-31] MEDS: ENOXAPARIN 40 MG/0.4 ML SYR SUBQ SCH (08:18)
[2022-05-31 12:00] VITALS: BP 119/81
[2022-05-31] MEDS ORDERED: DILT360T13 PO (14:58)
[2022-05-31 16:00] VITALS: BP 93/74
[2022-05-31] MEDS ORDERED: amLODIPine 5 MG TAB PO SCH (19:57)
[2022-05-31 20:00] VITALS: BP 130/98
[2022-05-31] MEDS ORDERED: LOSARTAN 50 MG TAB PO SCH (20:00)
[2022-05-31] MEDS ORDERED: GABAPENTIN 300 MG CAP PO PRN (21:00)
[2022-05-31] MEDS: GABAPENTIN 300 MG CAP PO SCH (21:21)
[2022-05-31] MEDS: gemfibroziL 600 MG TAB PO SCH (21:22)
[2022-06-01] VITALS: BP 119/85
[2022-06-01 04:00] VITALS: BP 111/76
[2022-06-01 07:30] LABS: BASOPHILS # (AUTO) 0.1 K/uL (0.00-0.22); EOSINOPHILS # (AUTO) 0.1 K/uL (0-0.4); EOSINOPHILS % (AUTO) 1.4 % (0.0-4.0); HEMATOCRIT 41.9 % (36-52); HEMOGLOBIN 14.3 g/dL (12.0-18.0); LYMPHOCYTES # (AUTO) 1.7 K/uL (2.0-11.5); LYMPHOCYTES % (AUTO) 20.5 % (20.5-51.1); MEAN CORPUSCULAR HEMOGLOBIN 32 pg (27-31); MEAN CORPUSCULAR HGB CONC 34 g/dL (33-37); MEAN CORPUSCULAR VOLUME 92.6 fL (80-94); MONOCYTES # (AUTO) 0.7 K/uL (0.8-1.0); MONOCYTES % (AUTO) 7.8 % (1.7-9.3); NEUTROPHILS # (AUTO) 5.9 K/uL (1.8-7.7); NEUTROPHILS % (AUTO) 69.3 % (42.2-75.2); PLATELET COUNT (AUTO) 300 K/uL (140-450); RED BLOOD CELL COUNT(AUTO) 4.53 MIL/uL (4.20-6.10); WHITE BLOOD COUNT (AUTO) 8.5 K/uL (4.8-10.8)
[2022-06-01 07:43] LABS: ANION GAP 12.1 (8-16); CARBON DIOXIDE 24.4 mmol/L (21-32); POTASSIUM 4.5 mmol/L (3.5-5.1)
[2022-06-01 08:00] VITALS: BP 101/72
[2022-06-01] MEDS: hydrALAZINE 10 MG TAB PO SCH ×3 (08:16→17:00)
[2022-06-01] MEDS: ASPIRIN 81 MG TAB.CHEW PO SCH (08:17)
[2022-06-01] MEDS: carvediloL 12.5 MG TAB PO SCH ×2 (08:17→21:22)
[2022-06-01] MEDS: ENOXAPARIN 40 MG/0.4 ML SYR SUBQ SCH (08:17)
[2022-06-01] MEDS: amLODIPine 5 MG TAB PO SCH (08:18)
[2022-06-01] MEDS: gemfibroziL 600 MG TAB PO SCH ×2 (08:18→21:22)
[2022-06-01] MEDS: PANTOPRAZOLE 40 MG TABEC PO SCH (08:19)
[2022-06-01 12:00] VITALS: BP 95/65
[2022-06-01] MEDS ORDERED: ADENOSINE 6 MG/2 ML VIAL IVP ONE ×2 (13:08→15:10)
[2022-06-01] MEDS ORDERED: DILTIAZEM 25 MG/5 ML VIAL IVP ONE ×2 (13:10→15:32)
[2022-06-01] MEDS ORDERED: NACL 0.9% 500 ML IV ONE (15:45)
[2022-06-01 16:00] VITALS: BP 106/70
[2022-06-01] MEDS ORDERED: DILTIAZEM 125 MG in DEXTROSE 5% 100 ML IV SCH (16:30)
[2022-06-01] MEDS ORDERED: AMIODARONE 450 MG in DEXTROSE 5% 250 ML IV SCH (17:45)
[2022-06-01] MEDS ORDERED: AMIODARONE 150 MG in DEXTROSE 5% 100 ML IV ONE (17:50)
[2022-06-01] MEDS ORDERED: AMIODARONE 150 MG/3 ML VIAL IV ONE (18:27)
[2022-06-01] MEDS ORDERED: AMIODARONE 450 MG/9 ML VIAL IV ONE (18:36)
[2022-06-01] MEDS: MORPHINE SULFATE 2 MG/ML SYR IVP PRN (19:39)
[2022-06-01 20:00] VITALS: BP 117/82
[2022-06-01] MEDS: GABAPENTIN 300 MG CAP PO SCH (21:22)
[2022-06-02] VITALS (12 sets, daily range): BP systolic 84–129; BP diastolic 44–89
[2022-06-02] MEDS: MORPHINE SULFATE 2 MG/ML SYR IVP PRN (00:53)
[2022-06-02] MEDS ORDERED: AMIODARONE 450 MG/9 ML VIAL IV ONE (02:41)
[2022-06-02 05:46] LABS: BASOPHILS # (AUTO) 0.1 K/uL (0.00-0.22); BASOPHILS % (AUTO) 0.8 % (0.0-2.0); EOSINOPHILS # (AUTO) 0.2 K/uL (0-0.4); EOSINOPHILS % (AUTO) 1.6 % (0.0-4.0); HEMATOCRIT 41.1 % (36-52); HEMOGLOBIN 14.1 g/dL (12.0-18.0); LYMPHOCYTES # (AUTO) 2.4 K/uL (2.0-11.5); LYMPHOCYTES % (AUTO) 24.5 % (20.5-51.1); MEAN CORPUSCULAR HEMOGLOBIN 32 pg (27-31); MEAN CORPUSCULAR HGB CONC 34 g/dL (33-37); MONOCYTES # (AUTO) 0.7 K/uL (0.8-1.0); MONOCYTES % (AUTO) 7.6 % (1.7-9.3); NEUTROPHILS # (AUTO) 6.4 K/uL (1.8-7.7); NEUTROPHILS % (AUTO) 65.5 % (42.2-75.2); PLATELET COUNT (AUTO) 270 K/uL (140-450); RED BLOOD CELL COUNT(AUTO) 4.42 MIL/uL (4.20-6.10); RED CELL DISTRIBUTION WIDTH 14.1 % (11.6-13.7); WHITE BLOOD COUNT (AUTO) 9.8 K/uL (4.8-10.8)
[2022-06-02 06:20] LABS: ANION GAP 11.1 (8-16); CARBON DIOXIDE 25.1 mmol/L (21-32); CREATININE 1.1 mg/dL (0.6-1.3); POTASSIUM 4.2 mmol/L (3.5-5.1)
[2022-06-02] MEDS: hydrALAZINE 10 MG TAB PO SCH ×3 (08:33→16:59)
[2022-06-02] MEDS: PANTOPRAZOLE 40 MG TABEC PO SCH (08:35)
[2022-06-02] MEDS: ASPIRIN 81 MG TAB.CHEW PO SCH (09:01)
[2022-06-02] MEDS: gemfibroziL 600 MG TAB PO SCH ×2 (09:03→21:22)
[2022-06-02] MEDS: carvediloL 12.5 MG TAB PO SCH ×2 (09:03→21:22)
[2022-06-02] MEDS: amLODIPine 5 MG TAB PO SCH (09:04)
[2022-06-02] MEDS: ENOXAPARIN 40 MG/0.4 ML SYR SUBQ SCH (09:06)
[2022-06-02] MEDS: GABAPENTIN 300 MG CAP PO SCH (21:21)
[2022-06-03] VITALS (16 sets, daily range): BP systolic 92–142; BP diastolic 51–95
[2022-06-03 05:40] LABS: BASOPHILS # (AUTO) 0.1 K/uL (0.00-0.22); EOSINOPHILS # (AUTO) 0.1 K/uL (0-0.4); EOSINOPHILS % (AUTO) 1.1 % (0.0-4.0); HEMATOCRIT 39.3 % (36-52); HEMOGLOBIN 13.5 g/dL (12.0-18.0); LYMPHOCYTES % (AUTO) 22.1 % (20.5-51.1); MEAN CORPUSCULAR HEMOGLOBIN 32 pg (27-31); MEAN CORPUSCULAR HGB CONC 34 g/dL (33-37); MEAN CORPUSCULAR VOLUME 91.8 fL (80-94); MONOCYTES # (AUTO) 0.6 K/uL (0.8-1.0); MONOCYTES % (AUTO) 7.1 % (1.7-9.3); NEUTROPHILS # (AUTO) 6.1 K/uL (1.8-7.7); NEUTROPHILS % (AUTO) 68.7 % (42.2-75.2); PLATELET COUNT (AUTO) 270 K/uL (140-450); RED BLOOD CELL COUNT(AUTO) 4.28 MIL/uL (4.20-6.10); RED CELL DISTRIBUTION WIDTH 14.1 % (11.6-13.7); WHITE BLOOD COUNT (AUTO) 8.8 K/uL (4.8-10.8)
[2022-06-03 05:55] LABS: ANION GAP 13.1 (8-16); CARBON DIOXIDE 21.9 mmol/L (21-32)
[2022-06-03] MEDS ORDERED: ceFAZolin 2,000 MG VIAL ONE (08:49)
[2022-06-03] MEDS ORDERED: BUPIVACAINE-MPF 0.25% 30 ML VIAL INJ ONE ×2 (08:49→10:20)
[2022-06-03] MEDS: PANTOPRAZOLE 40 MG TABEC PO SCH (09:00)
[2022-06-03] MEDS: ASPIRIN 81 MG TAB.CHEW PO SCH (09:00)
[2022-06-03] MEDS: gemfibroziL 600 MG TAB PO SCH ×2 (09:00→21:00)
[2022-06-03] MEDS: ENOXAPARIN 40 MG/0.4 ML SYR SUBQ SCH (09:00)
[2022-06-03] MEDS: hydrALAZINE 10 MG TAB PO SCH ×3 (09:00→17:00)
[2022-06-03] MEDS: amLODIPine 5 MG TAB PO SCH (09:00)
[2022-06-03] MEDS: carvediloL 12.5 MG TAB PO SCH ×2 (09:00→21:59)
[2022-06-03] MEDS ORDERED: fentaNYL citrate 0.05 MG/ML VIAL ONE (09:42)
[2022-06-03] MEDS ORDERED: MIDAZOLAM 2 MG/2 ML VIAL ONE (10:03)
[2022-06-03] MEDS ORDERED: ceFAZolin 1,000 MG VIAL ONE ×2 (10:03)
[2022-06-03] MEDS ORDERED: PROPOFOL 200 MG/20 ML VIAL IV ONE ×3 (10:04)
[2022-06-03] MEDS ORDERED: POTASSIUM CHLORIDE 10 MEQ TABER PO PRN (11:35)
[2022-06-03] MEDS ORDERED: MAGNESIUM OXIDE 400 MG TAB PO PRN (11:35)
[2022-06-03] MEDS ORDERED: MAG SULF 2000 MG/WATER PREMIX 50 ML IV PRN (11:35)
[2022-06-03] MEDS ORDERED: KCL 20 MEQ/WATER INJ PREMIX 200 ML IV PRN (11:35)
[2022-06-03] MEDS ORDERED: ONDANSETRON 4 MG/2 ML VIAL IVP PRN (11:35)
[2022-06-03] MEDS ORDERED: ACETAMINOPHEN 325 MG TAB PO PRN ×2 (11:35→14:50)
[2022-06-03] MEDS: NACL 0.9% 1,000 ML IV SCH (12:23)
[2022-06-03] MEDS ORDERED: carvediloL 12.5 MG TAB PO SCH (15:30)
[2022-06-03] MEDS: HYDROcodone/APAP 5/325 MG 1 TAB TAB PO PRN (15:40)
[2022-06-03] MEDS: GABAPENTIN 300 MG CAP PO SCH (21:59)
[2022-06-03] MEDS: ZOLPIDEM 5 MG TAB PO PRN (22:05)
[2022-06-03] MEDS: MORPHINE SULFATE 2 MG/ML SYR IVP PRN (22:05)
[2022-06-04] VITALS (19 sets, daily range): BP systolic 89–151; BP diastolic 50–88
[2022-06-04] MEDS: NACL 0.9% 1,000 ML IV SCH ×2 (00:05→12:49)
[2022-06-04] MEDS: MORPHINE SULFATE 2 MG/ML SYR IVP PRN (02:11)
[2022-06-04] MEDS: HYDROcodone/APAP 5/325 MG 1 TAB TAB PO PRN ×2 (04:40→17:52)
[2022-06-04 05:43] LABS: BASOPHILS # (AUTO) 0.1 K/uL (0.00-0.22); BASOPHILS % (AUTO) 0.7 % (0.0-2.0); EOSINOPHILS # (AUTO) 0.1 K/uL (0-0.4); EOSINOPHILS % (AUTO) 1.4 % (0.0-4.0); HEMATOCRIT 39.8 % (36-52); HEMOGLOBIN 13.7 g/dL (12.0-18.0); LYMPHOCYTES # (AUTO) 1.7 K/uL (2.0-11.5); LYMPHOCYTES % (AUTO) 16.3 % (20.5-51.1); MEAN CORPUSCULAR HEMOGLOBIN 32 pg (27-31); MEAN CORPUSCULAR HGB CONC 34 g/dL (33-37); MEAN CORPUSCULAR VOLUME 92.4 fL (80-94); MONOCYTES # (AUTO) 0.9 K/uL (0.8-1.0); MONOCYTES % (AUTO) 8.5 % (1.7-9.3); NEUTROPHILS # (AUTO) 7.5 K/uL (1.8-7.7); NEUTROPHILS % (AUTO) 73.1 % (42.2-75.2); PLATELET COUNT (AUTO) 281 K/uL (140-450); RED BLOOD CELL COUNT(AUTO) 4.31 MIL/uL (4.20-6.10); RED CELL DISTRIBUTION WIDTH 13.8 % (11.6-13.7); WHITE BLOOD COUNT (AUTO) 10.3 K/uL (4.8-10.8)
[2022-06-04 06:56] LABS: CARBON DIOXIDE 24.1 mmol/L (21-32); CREATININE 1.1 mg/dL (0.6-1.3); POTASSIUM 4.1 mmol/L (3.5-5.1)
[2022-06-04] MEDS: PANTOPRAZOLE 40 MG TABEC PO SCH (08:30)
[2022-06-04] MEDS: hydrALAZINE 10 MG TAB PO SCH ×3 (08:30→17:00)
[2022-06-04] MEDS: ASPIRIN 81 MG TAB.CHEW PO SCH (08:31)
[2022-06-04] MEDS: amLODIPine 5 MG TAB PO SCH (08:31)
[2022-06-04] MEDS: carvediloL 12.5 MG TAB PO SCH ×2 (08:31→21:28)
[2022-06-04] MEDS: ENOXAPARIN 40 MG/0.4 ML SYR SUBQ SCH (08:32)
[2022-06-04] MEDS: gemfibroziL 600 MG TAB PO SCH ×2 (08:39→21:28)
[2022-06-04] MEDS ORDERED: carvediloL 12.5 MG TAB PO SCH (09:30)
[2022-06-04] MEDS ORDERED: AMIODARONE 150 MG in DEXTROSE 5% 100 ML IV SCH (16:00)
[2022-06-04] MEDS: AMIODARONE 450 MG in DEXTROSE 5% 250 ML IV SCH ×2 (18:09→22:50)
[2022-06-04] MEDS ORDERED: DEXAMETHASONE 4 MG/ML VIAL IVP SCH (18:20)
[2022-06-04] MEDS: GABAPENTIN 300 MG CAP PO SCH (21:28)
[2022-06-05] VITALS (22 sets, daily range): BP systolic 99–147; BP diastolic 50–85
[2022-06-05] MEDS: NACL 0.9% 1,000 ML IV SCH ×2 (01:30→12:41)
[2022-06-05] MEDS: ASPIRIN 81 MG TAB.CHEW PO SCH (08:45)
[2022-06-05] MEDS: gemfibroziL 600 MG TAB PO SCH ×2 (08:45→20:41)
[2022-06-05] MEDS: carvediloL 12.5 MG TAB PO SCH ×2 (08:45→20:42)
[2022-06-05] MEDS: hydrALAZINE 10 MG TAB PO SCH ×3 (08:46→16:38)
[2022-06-05] MEDS: PANTOPRAZOLE 40 MG TABEC PO SCH (08:46)
[2022-06-05] MEDS: amLODIPine 5 MG TAB PO SCH (08:46)
[2022-06-05] MEDS ORDERED: ERGOCALCIFEROL 50,000 IU SGL PO SCH ×2 (09:00)
[2022-06-05 10:55] LABS: ANION GAP 7.1 (8-16); CARBON DIOXIDE 26.1 mmol/L (21-32); POTASSIUM 4.2 mmol/L (3.5-5.1)
[2022-06-05 11:02] LABS: BASOPHILS # (AUTO) 0.1 K/uL (0.00-0.22); EOSINOPHILS # (AUTO) 0.1 K/uL (0-0.4); EOSINOPHILS % (AUTO) 1.7 % (0.0-4.0); HEMATOCRIT 37.8 % (36-52); HEMOGLOBIN 13.1 g/dL (12.0-18.0); LYMPHOCYTES # (AUTO) 1.1 K/uL (2.0-11.5); LYMPHOCYTES % (AUTO) 15.2 % (20.5-51.1); MEAN CORPUSCULAR HEMOGLOBIN 32 pg (27-31); MEAN CORPUSCULAR HGB CONC 35 g/dL (33-37); MEAN CORPUSCULAR VOLUME 91.8 fL (80-94); MONOCYTES # (AUTO) 0.6 K/uL (0.8-1.0); MONOCYTES % (AUTO) 8.6 % (1.7-9.3); NEUTROPHILS # (AUTO) 5.5 K/uL (1.8-7.7); NEUTROPHILS % (AUTO) 73.5 % (42.2-75.2); PLATELET COUNT (AUTO) 273 K/uL (140-450); RED BLOOD CELL COUNT(AUTO) 4.11 MIL/uL (4.20-6.10); RED CELL DISTRIBUTION WIDTH 14.2 % (11.6-13.7); WHITE BLOOD COUNT (AUTO) 7.5 K/uL (4.8-10.8)
[2022-06-05] MEDS: ENOXAPARIN 40 MG/0.4 ML SYR SUBQ SCH (11:12)
[2022-06-05] MEDS: AMIODARONE 200 MG TAB PO SCH ×2 (15:35→20:42)
[2022-06-05] MEDS: GABAPENTIN 300 MG CAP PO SCH (20:42)
[2022-06-05] MEDS: ZOLPIDEM 5 MG TAB PO PRN (22:42)
[2022-06-06] VITALS: BP 108/66
[2022-06-06 04:00] VITALS: BP 120/71
[2022-06-06 08:00] VITALS: BP 119/76
[2022-06-06] MEDS: gemfibroziL 600 MG TAB PO SCH (08:59)
[2022-06-06] MEDS: ASPIRIN 81 MG TAB.CHEW PO SCH (08:59)
[2022-06-06] MEDS: hydrALAZINE 10 MG TAB PO SCH ×2 (09:00→13:26)
[2022-06-06] MEDS: AMIODARONE 200 MG TAB PO SCH (09:00)
[2022-06-06] MEDS: PANTOPRAZOLE 40 MG TABEC PO SCH (09:01)
[2022-06-06] MEDS: amLODIPine 5 MG TAB PO SCH (09:01)
[2022-06-06] MEDS: carvediloL 12.5 MG TAB PO SCH (09:02)
[2022-06-06] MEDS: ENOXAPARIN 40 MG/0.4 ML SYR SUBQ SCH (09:05)
[2022-06-06] MEDS ORDERED: DEXTROSE 50% 50 ML SYR IVP PRN (11:20)
[2022-06-06] MEDS ORDERED: INSULIN LISPRO SLIDING SCALE 100 UNITS/ML VIAL SUBQ PRN (11:20)
[2022-06-06] MEDS ORDERED: BLOOD GLUCOSE MONITORING 1 DEV DEV FS SCH (11:30)
[2022-06-06 12:00] VITALS: BP 110/62
[2022-06-06] MEDS ORDERED: AMIO200T10 PO (15:14)
[2022-06-06 15:40] VITALS: BP 110/62
[2022-06-06 16:00] VITALS: BP 114/75
[2022-06-13] MEDS ORDERED: AMIODARONE 200 MG TAB PO SCH (09:00)
== END 2022-06-06 16:30 | disposition home or self-care (01) | DRG 171 ==
LOC: MED 18:32 → UNDOADMOB 22:05 → MTU 22:05 → UNDOADMOB 22:11 → MTU 22:11 → MED 22:11 → MTU 05-31 00:41 → OBSVTOIN 05-31 15:57 → INTOOBSV 05-31 15:57 → MTU 06-01 17:28 → MIC 06-01 17:28 → MTU 06-05 21:30
PROVIDERS: ADMIT Hospitalist; ATTEND Hospitalist
PROC: 02H63JZ Insertion of Pacemaker Lead into Right Atrium, Percutaneous Approach (ICD-10-PCS; 2022-06-03)
PROC: 02HK3JZ Insertion of Pacemaker Lead into Right Ventricle, Percutaneous Approach (ICD-10-PCS; 2022-06-03)
PROC: 0JH606Z Insertion of Pacemaker, Dual Chamber into Chest Subcutaneous Tissue and Fascia, Open Approach (ICD-10-PCS; principal; 2022-06-03 09:30)
DX: I49.5 Sick sinus syndrome (principal); R65.11 Systemic inflammatory response syndrome (SIRS) of non-infectious origin with acute organ dysfunction; E11.42 Type 2 diabetes mellitus with diabetic polyneuropathy; I50.31 Acute diastolic (congestive) heart failure; I47.1 Supraventricular tachycardia; E11.22 Type 2 diabetes mellitus with diabetic chronic kidney disease; I48.20 Chronic atrial fibrillation, unspecified; G62.9 Polyneuropathy, unspecified; E78.5 Hyperlipidemia, unspecified; Z20.822 Contact with and (suspected) exposure to COVID-19; I13.0 Hypertensive heart and chronic kidney disease with heart failure and stage 1 through stage 4 chronic kidney disease, or unspecified chronic kidney disease; J44.9 Chronic obstructive pulmonary disease, unspecified; N18.30 Chronic kidney disease, stage 3 unspecified; K21.9 Gastro-esophageal reflux disease without esophagitis; M06.9 Rheumatoid arthritis, unspecified; Z79.899 Other long term (current) drug therapy; Z79.82 Long term (current) use of aspirin
CPT/HCPCS: 36415; 70450; 71045; 80048; 80053; 82550; 82553; 83605; 83735; 83880; 84484; 85025; 85610; 85730; 87040; 87081; 93005; 96360; 99285; C1785; G0378; J0153; J0282; J0690; J1650; J2250; J2270; J2704; J3010; J3490; J7060; Q0092